=== PATIENT | female | born 1945 | race Caucasian/White ===

== ENCOUNTER 2017-04-11 08:07 | Outpatient (CLI) | payer MEDICARE, OTHER ==
--- NOTE | 2017-04-11 09:50 | MRI ---
MRI LUMBAR SPINE WITHOUT CONTRAST: Date: 04/11/17 HISTORY: Chronic back pain. COMPARISON: None. FINDINGS: The kidneys are slightly small. There is a large cyst inferior pole right kidney measuring up to 3.2 cm. The aortic contour is nonaneurysmal. The conus medullaris terminates near the inferior end plate of L1. Background marrow signal lumbar spine is normal. Levels are as follows: T12-L1: Normal disc space. No significant neural foraminal or spinal canal narrowing. L1-2: Mild degenerative disc space height loss. Circumferential disc bulge with a superimposed right parac entral posterior disc protrusion. This causes mild right-sided posterior spinal canal narrowing to a pproximately 7.0 mm, although the central canal is not significantly narrowed. Mild disc arthrosis. Subsequent mild right-sided neural foraminal narrowing. L2-3: Retained disc space height. No significant neural foraminal or spinal canal narrowing. L3-4: Very low grade circumferential disc bulge due to height loss. Moderate facet arthrosis. There is mod erate left and right neural foraminal narrowing. The spinal canal at this level measures over 1.0 cm . L4-5: Moderate facet arthrosis. Very low grade broad based posterior disc protrusion and bulge. Subsequent moderate bilateral neural foraminal narrowing. L5-S1: Moderate facet arthropathy. There is moderate right and mild left-sided neural foraminal narrowing. Small central posterior disc protrusion. There is a small perineural cyst of the left exiting S3 nerve root. IMPRESSION: Moderate spondylosis as described above. POS: [facility]
== END 2017-04-11 08:08 | disposition home or self-care (01) ==
LOC: SCSMRI 08:07
PROVIDERS: ATTEND Orthopaedic Surgery
DX: M47.26 Other spondylosis with radiculopathy, lumbar region (principal); M25.552 Pain in left hip
CPT/HCPCS: 72148

== ENCOUNTER 2018-04-10 08:45 | Inpatient (IN) | payer MEDICARE, OTHER ==
--- NOTE | 2018-04-17 12:01 | HP ---
DATE OF ADMISSION: 04/21/2018 HISTORY OF PRESENT ILLNESS: The patient is a 72-year-old female with a greater than 1-year history o f progressive problems with the left hip and groin without injury. She has tried weightbearing pain, reduced with activities, especially getting out of a car. She has had progressive symptoms despite rest, restriction of activities, anti-inflammatory medications, and a previous cortisone injection. Pain is now interfering with day-to-day activities. The patient also has a component of lumbar spondylosis and has obtained epidural steroid injection wi th partial relief, but she continues to have hip and groin pain. She also has a history of hypertens ion, hyperlipidemia, hypothyroidism, insomnia, psoriasis, and possible component of psoriatic arthrit is and possible rheumatoid arthritis. She has had carcinoma of the cervix requiring a hysterectomy. SOCIAL HISTORY: She works shrimp trawler as a realtor. CURRENT MEDICATIONS: Include fluocinonide topical solution for psoriasis, atorvastatin, trazodone, l orazepam for anxiety, atenolol, TriCor, [place] thyroid. ALLERGIES: She has no known allergies. FAMILY HISTORY: Otherwise unremarkable. SOCIAL HISTORY: Otherwise unremarkable. REVIEW OF SYSTEMS: Otherwise unremarkable. PHYSICAL EXAMINATION: GENERAL: Healthy female. HEENT: Unremarkable. NECK: Supple. CHEST: Clear. HEART: Regular rate and rhythm. ABDOMEN: Soft, nontender. PELVIC/RECTAL/BREASTS: Deferred. EXTREMITIES: Pertinent findings of the left hip. Leg lengths are equal. There is a slight left ant algic gait. There is tenderness over the anterior hip. There is decreased range of motion and groin pain with internal rotation. Neurovascular exam is intact. Straight leg raising is negative. LABORATORY AND X-RAY FINDINGS: X-rays of the left hip reveal moderate DJD with progression from prev ious x-rays. MRI scan of the left hip reveals more significant degenerative arthritis with cyst form ation in the acetabulum and rim osteophytes. IMPRESSION: 1. Degenerative arthritis, left hip. 2. History of thyroid replacement. 3. History of hypertension. 4. History of psoriasis. 5. Lumbar spondylosis. PLAN: Left total hip replacement. The nature of the surgery, length of recovery, and potential comp lications such as infection, loss of motion, incomplete relief, neurovascular injury, thromboembolic phenomenon, leg length discrepancy, possible transfusion, and need for revision have been discussed i n detail.
[2018-04-21] MEDS ORDERED: Sodium Chloride 0.9% 100 ML ONE (06:03)
[2018-04-21] MEDS ORDERED: CEFAZOLIN/Water 2 GM/20 ML SYRINGE ONE (06:03)
[2018-04-21] MEDS ORDERED: Vancomycin HCl 1.5 GM in Sodium Chloride 0.9% 250 ML 300 ML IVPB SCH ×2 (06:15→20:00)
[2018-04-21] MEDS ORDERED: Midazolam HCl 2 mg/2 ml Vial ONE (06:33)
[2018-04-21] MEDS ORDERED: Fentanyl 100 MCG/2 ML VIAL ONE ×2 (06:34→09:46)
[2018-04-21] MEDS ORDERED: Ondansetron HCl/PF 4 MG/2 ML Vial IVP PRN ×3 (07:46→11:23)
[2018-04-21] MEDS ORDERED: Promethazine HCl 25 MG/ML VIAL IM PRN ×2 (07:46→09:15)
[2018-04-21] MEDS ORDERED: Promethazine HCl 25 MG/ML VIAL SLOW IVP PRN ×2 (07:46→11:23)
[2018-04-21] MEDS ORDERED: Tranexamic Acid 1,000 MG in Sodium Chloride 0.9% 100 ML IVPB SCH ×2 (09:03→09:15)
[2018-04-21] MEDS ORDERED: fentaNYL Citrate/PF 1,250 MCG, Bupivacaine 25 ML in Sodium Chloride 0.9% 250 ML 200 ML EPIDURAL SCH (09:15)
[2018-04-21] MEDS ORDERED: diphenhydrAMINE 25 MG CAP PO PRN ×2 (09:15→11:23)
[2018-04-21] MEDS ORDERED: Bupivacaine 0.25% 10 ML VIAL EPIDURAL PRN (09:15)
[2018-04-21] MEDS ORDERED: HYDROcodone/Acetaminophen 5/325 mg Tablet PO PRN (09:15)
[2018-04-21] MEDS ORDERED: traMADol HCl 50 MG TAB PO PRN ×3 (09:15→11:23)
[2018-04-21] MEDS ORDERED: Zolpidem Tartrate 5 MG TAB PO PRN ×2 (09:15→11:23)
[2018-04-21] MEDS ORDERED: diphenhydrAMINE 50 MG/ML VIAL IVP PRN (09:15)
[2018-04-21] MEDS ORDERED: Hydrocerin (Eucerin) Cream 120 gm Jar TOP PRN (09:15)
[2018-04-21] MEDS ORDERED: Naloxone HCl 0.4 mg/ml Vial IV PRN (09:15)
[2018-04-21] MEDS ORDERED: Promethazine HCl 25 MG SUPP PR PRN (09:15)
[2018-04-21] MEDS ORDERED: Naloxone HCl 0.4 mg/ml Vial IVP PRN (09:15)
[2018-04-21] MEDS ORDERED: diphenhydrAMINE 50 MG/ML VIAL IM PRN (09:15)
--- NOTE | 2018-04-21 09:36 | OP ---
DATE OF PROCEDURE: 04/21/2018 SURGEON: uM Hirsch M.D. APPLICATION TECHNICAL DESIGNER: Ra Villalta PA-C. ANESTHESIA: General plus epidural. PREOPERATIVE DIAGNOSIS: Degenerative arthritis, left hip. POSTOPERATIVE DIAGNOSIS: Degenerative arthritis, left hip. PROCEDURES: Left total hip replacement with uncemented Norma Tritanium acetabular component 54 mm with X3 polyethylene insert and uncemented Accolade #3 femoral stem with 36 mm standard neck length m etal femoral head. NARRATIVE REPORT: After satisfactory anesthesia was induced in the supine position, the patient was placed in the lateral decubitus position and this position was held with a hip position device. Sequ ential compression device was used on the nonoperative leg throughout the procedure. The patient was prepped and draped in the routine sterile fashion. The hip was approached through a lateral curvili near incision centered over the greater trochanter and carried down to the subcutaneous tissues and b leeding points were controlled with cautery. IT band and gluteal fascia were split in line with the skin incision. Direct lateral approach to the hip joint was accomplished by dividing the anterior th ird of the gluteus medius and minimus tendons with Bovie cautery and reflecting this as a single flap anteriorly and medially along with the vastus lateralis. Anterior capsulectomy was performed. Hip dislocated anteriorly. There was marked degenerative arthritis of the hip with areas of exposed bone . The femoral neck was osteotomized with an oscillating saw using a trial prosthesis as a guide. Ac etabulum was exposed and cleaned of all soft tissue debris and then reamed in sequence with power stephanie mers down to bleeding subchondral bone to a total of 53 mm. It was felt that a 54 mm Tritanium outer shell could be placed in a press fit fashion. The permanent outer shell was hammered in position. There was good fit and stability of the component and the permanent X3 polyethylene liner was snapped into position and the proximal femur exposed. It was opened with a box osteotome and rasped in sequ ence to accept a #3 Accolade femoral rasp. Trial reduction with a 132-degree neck angle trunnion and the standard neck length of 36 mm head gave appropriate size, fit, stability and maintenance of leg length. Hip was dislocated and the trial components were removed. The permanent #3 Accolade femoral stem was then hammered in position. There was again good fit and stability of the component. The p ermanent 36 mm standard neck length metal head was then placed on the trunnion. The hip reduced and again found to be stable. The hip was copiously irrigated with pulsatile lavage. The abductors were repaired with interrupted #2 Vicryl. IT band and gluteal fascia were closed with interrupted #2 Cal ryl and a running #2 Quill. Subcutaneous tissues closed with running 0 Quill suture and the skin shelton sed with running subcuticular 3-0 Monoderm and SurgiSeal skin adhesive. Sterile dressing was applied . The patient was turned to the supine position and a pillow placed between her legs. Sequential co mpression device was applied to her operated leg and she was awakened and taken to recovery room in s table condition. There were no apparent intraoperative complications. ESTIMATED BLOOD LOSS: 250 mL.
--- NOTE | 2018-04-21 10:10 | RAD ---
TWO VIEWS LEFT HIP: History: Status post-surgery. FINDINGS: AP and lateral views demonstrate a left hip arthroplasty. Femoral and acetabular components are in go od position. No evidence of fractures or lucency. IMPRESSION: Status post left hip arthroplasty. POS: [facility]
[2018-04-21] MEDS ORDERED: Fentanyl 100 MCG/2 ML VIAL SLOW IVP PRN ×2 (11:23)
[2018-04-21] MEDS ORDERED: HYDROcodone/Acetaminophen 10/325 mg Tablet PO PRN ×2 (11:23)
[2018-04-21] MEDS ORDERED: Acetaminophen 325 MG TAB PO PRN (11:23)
[2018-04-21] MEDS: Sodium Chloride 0.9% 1,000 ML IV SCH ×2 (12:50→15:35)
[2018-04-21] MEDS: Ketorolac Tromethamine 30 MG/ML VIAL IVP SCH ×3 (12:50→23:15)
[2018-04-21] MEDS: CEFAZOLIN/Water 2 GM/20 ML SYRINGE SLOW IVP SCH ×2 (13:25→21:02)
--- NOTE | 2018-04-21 13:59 | PDOC.PN ---
- Subjective Encounter Start Date: 04/21/18 Encounter Start Time: 13:57 -: old records requested/rev admitted for left hip replacement no complication post op pt has epidural in place Her BP is low but pt is asymptomatic Patient seen and examined. - Objective MAR Reviewed: Yes Vital Signs & Weight: Vital Signs (12 hours) Temp Pulse Resp BP Pulse Ox 04/21/18 13:31 98.4 F 60 16 119/80 96 04/21/18 11:00 97.3 F L 52 L 18 115/66 99 Weight Weight 7.584 oz Additional Labs: old medical record reviewed Radiology Reviewed by me: Yes (hip xray reviewed) Phys Exam - Physical Examination Constitutional: NAD HEENT: PERRLA, moist MMs, sclera anicteric Neck: no JVD, supple Respiratory: no wheezing, no rales, no rhonchi Cardiovascular: RRR, no significant murmur, no rub Gastrointestinal: soft, non-tender, no distention, positive bowel sounds left hip surgical site with dressing, sevilla+, epidural in place Musculoskeletal: no edema, pulses present Neurological: non-focal, normal sensation, moves all 4 limbs Lymphatic: no nodes Psychiatric: normal affect, A&O x 3 Skin: no rash, normal turgor Dx/Plan (1) Status post total hip replacement, left Code(s): Z96.642 - PRESENCE OF LEFT ARTIFICIAL HIP JOINT Status: Acute (2) Hypertension Code(s): I10 - ESSENTIAL (PRIMARY) HYPERTENSION Status: Chronic (3) Dyslipidemia Code(s): E78.5 - HYPERLIPIDEMIA, UNSPECIFIED Status: Chronic (4) Hypothyroidism Code(s): E03.9 - HYPOTHYROIDISM, UNSPECIFIED Status: Chronic (5) Lumbar spondylolysis Code(s): M43.06 - SPONDYLOLYSIS, LUMBAR REGION Status: Chronic (6) Psoriasis Code(s): L40.9 - PSORIASIS, UNSPECIFIED Status: Chronic - Plan cont current plan of care, PT/OT * continue aspirin for DVT prophylaxis * continue pepcid for GI prophylaxis * home medication reconciled * epidural as per anesthesia * continue PT/OT as per JU protocol treatment * hold BP meds for SBP <120 * medication reviewed as below * symptomatic treatment. Review of Systems - Review of Systems Eyes: negative: Pain, Vision Change, Conjunctivae Inflammation, Eyelid Inflammation, Redness, Other ENT: negative: Ear Pain, Ear Discharge, Nose Pain, Nose Discharge, Nose Congestion, Mouth Pain, Mouth Swelling, Throat Pain, Throat Swelling, Other Respiratory: negative: Cough, Dry, Shortness of Breath, Hemoptysis, SOB with Excertion, Pleuritic Pain, Sputum, Wheezing Cardiovascular: negative: chest pain, palpitations, orthopnea, paroxysmal nocturnal dyspnea, edema, light headedness, other Gastrointestinal: negative: Nausea, Vomiting, Abdominal Pain, Diarrhea, Constipation, Melena, Hematochezia, Other Genitourinary: negative: Dysuria, Frequency, Incontinence, Hematuria, Retention , Other Musculoskeletal: negative: Neck Pain, Shoulder Pain, Arm Pain, Back Pain, Hand Pain, Leg Pain, Foot Pain, Other Skin: negative: Rash, Lesions, Tramaine, Bruising, Other - Medications/Allergies Allergies/Adverse Reactions: Allergies Allergy/AdvReac Type Severity Reaction Status Date / Time No Known Allergies Allergy Verified 04/16/18 09:54 Medications: Current Medications Acetaminophen (Tylenol) 650 mg PO Q4H PRN PRN Reason: FLORES/ T > 101F; Mild Pain (1-3) Hydrocodone Bitart/Acetaminophen ([place] 5/325) 1 tab PO Q4H PRN PRN Reason: Mild Pain 0-3 Hydrocodone Bitart/Acetaminophen ([place] 5/325) 2 tab PO Q4H PRN PRN Reason: For Moderate Pain 4-6 Hydrocodone Bitart/Acetaminophen ([place] 10/325) 1 tab PO Q4H PRN PRN Reason: Moderate Pain (4-6) Hydrocodone Bitart/Acetaminophen ([place] 10/325) 2 tab PO Q4H PRN PRN Reason: Severe Pain (7-10) Aspirin (Ecotrin) 81 mg PO BID [facility] Atenolol (Tenormin) 50 mg PO HS [facility] Atorvastatin Calcium (Lipitor) 10 mg PO HS [facility] Bupivacaine HCl (Marcaine) 5 ml EPIDURAL ONE PRN PRN Reason: UNCONTROLLED PAIN Stop: 04/24/18 09:16 Cefazolin Sodium (Ancef) 2 gm SLOW IVP Q8HR [facility] Stop: 04/21/18 22:01 Last Admin: 04/21/18 13:25 Dose: 2 gm Cyanocobalamin (Vitamin B-12) 2,000 mcg PO DAILY [facility] Diphenhydramine HCl (Benadryl) 25 mg PO Q3H PRN PRN Reason: Itching Diphenhydramine HCl (Benadryl) 25 mg IM Q3H PRN PRN Reason: Itching Diphenhydramine HCl (Benadryl) 25 mg IVP Q3H PRN PRN Reason: Itching Diphenhydramine HCl (Benadryl) 25 mg PO Q6H PRN PRN Reason: Itching Emollient Cream (Hydrocerin Cream) 0 gm TOP PRN PRN PRN Reason: Itching Fenofibrate (Tricor) 145 mg PO HS [facility] Fentanyl (Sublimaze) 50 mcg SLOW IVP Q30MIN PRN PRN Reason: Moderate Pain (4-6) Fentanyl (Sublimaze) 100 mcg SLOW IVP Q1H PRN PRN Reason: Severe Pain (7-10) Ferrous Gluconate (Fergon) 324 mg PO BID [facility] Fentanyl Citrate 1,250 mcg/Bupivacaine HCl 25 ml/ Sodium Chloride 250 mls @ 6 mls/hr EPIDURAL INF [facility] Sodium Chloride (Normal Saline 0.9%) 1,000 mls @ 100 mls/hr IV .Q10H [facility] Last Admin: 04/21/18 12:50 Dose: Not Given Vancomycin HCl 1.5 gm/ Sodium (Chloride) 300 mls @ 200 mls/hr IVPB 2000 [facility] Stop: 04/21/18 21:29 Iron/Minerals/Multivitamins (Theragran M) 1 tab PO DAILY [facility] Ketorolac Tromethamine (Toradol) 15 mg IVP Q6HR [facility] Stop: 04/23/18 06:01 Last Admin: 04/21/18 12:50 Dose: Not Given Ketorolac Tromethamine (Toradol) 15 mg IVP Q8HR [facility] Stop: 04/23/18 14:01 Last Admin: 04/21/18 12:53 Dose: Not Given Miscellaneous Information (Communication Order-Pharmacy) 1 each FS ASDIR [facility] Naloxone HCl (Narcan) 0.2 mg IV Q5MIN PRN PRN Reason: RR <=8 OR OBTUNDED/UNAROUSABLE Naloxone HCl (Narcan) 0.1 mg IVP Q15MIN PRN PRN Reason: URINARY RETENTION Ondansetron HCl (Zofran) 4 mg IVP Q6H PRN PRN Reason: Nausea/Vomiting Ondansetron HCl (Zofran) 4 mg IVP Q6H PRN PRN Reason: Nausea/Vomiting Promethazine HCl (Phenergan) 12.5 mg IM Q4H PRN PRN Reason: Nausea Promethazine HCl (Phenergan Suppository) 25 mg [place] Q4H PRN PRN Reason: Nausea/Vomiting Promethazine HCl (Phenergan) 12.5 mg SLOW IVP Q4H PRN PRN Reason: Nausea/Vomiting Senna/Docusate Sodium (Senokot S) 2 tab PO BID [facility] Sodium Chloride (Flush - Normal Saline) 10 ml IVF PRN PRN PRN Reason: Saline Flush Thyroid ([place] Thyroid) 90 mg PO DAILY [facility] Tramadol HCl (Ultram) 50 mg PO Q6H PRN PRN Reason: Mild Pain 1-3 Tramadol HCl (Ultram) 100 mg PO Q6H PRN PRN Reason: Moderate Pain 4-6 Tramadol HCl (Ultram) 100 mg PO Q6H PRN PRN Reason: Mild Pain (1-3) Zolpidem Tartrate (Ambien) 5 mg PO HSPRN PRN PRN Reason: Insomnia Zolpidem Tartrate (Ambien) 5 mg PO HSPRN PRN PRN Reason: Insomnia
[2018-04-21] MEDS ORDERED: Ketorolac Tromethamine 30 MG/ML VIAL IVP SCH (14:00)
[2018-04-21] MEDS ORDERED: hydrALAZINE 20 MG/ML VIAL SLOW IVP PRN (14:03)
[2018-04-21] MEDS ORDERED: Acetaminophen 500 MG TAB PO PRN (14:03)
[2018-04-21] MEDS ORDERED: Diabetic Tussin 200 MG/10 ML UDCUP PO PRN (14:03)
[2018-04-21] MEDS ORDERED: Eucerin (Mineral Oil/Petrolatum,White) 30 gm Jar TOP PRN (14:03)
[2018-04-21] MEDS ORDERED: Artificial Tears 18 DROP/0.9 ML EA EYE PRN (14:03)
[2018-04-21] MEDS ORDERED: Loperamide HCl 2 MG CAP PO PRN (14:03)
[2018-04-21] MEDS: HYDROcodone/Acetaminophen 5/325 mg Tablet PO PRN (15:37)
[2018-04-21] MEDS ORDERED: PROPOFOL 200 MG/20 ML VIAL ONE (17:01)
[2018-04-21] MEDS ORDERED: Ondansetron HCl/PF 4 MG/2 ML Vial ONE (17:01)
[2018-04-21] MEDS ORDERED: PHENYLEPHRINE-NS 100 MCG/ML 10 ML SYRINGE ONE (17:01)
[2018-04-21] MEDS ORDERED: Glycopyrrolate 0.2 MG/ML 5 ML SYRINGE ONE (17:01)
[2018-04-21] MEDS ORDERED: Lidocaine 1% PF 5 ML VIAL ONE (17:01)
[2018-04-21] MEDS: Atenolol 50 MG TAB PO SCH (20:34)
[2018-04-21] MEDS: Atorvastatin Calcium 10 MG TAB PO SCH (20:35)
[2018-04-21] MEDS: Fenofibrate Nanocrystallized 145 MG TAB PO SCH (20:35)
[2018-04-21] MEDS: Aspirin 81 mg Enteric Coated Tablet PO SCH (20:35)
[2018-04-21] MEDS: Famotidine 20 MG TAB PO SCH (20:35)
[2018-04-22] MEDS: Ketorolac Tromethamine 30 MG/ML VIAL IVP SCH ×4 (05:12→23:07)
[2018-04-22] MEDS: Sodium Chloride 0.9% 1,000 ML IV SCH ×2 (05:52→17:50)
[2018-04-22] MEDS: Multivitamin W/ Minerals 1 TAB PO SCH (08:43)
[2018-04-22] MEDS: Senokot S 8.6-50 MG TAB PO SCH ×2 (08:43→20:12)
[2018-04-22] MEDS: Cyanocobalamin (Vitamin B-12) 1,000 MCG TAB PO SCH (08:43)
[2018-04-22] MEDS: Ferrous Gluconate 324 MG TAB PO SCH ×2 (08:43→20:12)
[2018-04-22] MEDS: Aspirin 81 mg Enteric Coated Tablet PO SCH ×2 (08:44→20:12)
[2018-04-22] MEDS: Famotidine 20 MG TAB PO SCH ×2 (08:44→20:12)
[2018-04-22] MEDS ORDERED: Sodium Chloride 0.9% 500 ML IV SCH (09:00)
[2018-04-22 09:18] LABS: Hemoglobin 10.9 g/dL (12.0-16.0); Mean Corpuscular HGB CONC 33.6 g/dL (32.0-36.0); Mean Corpuscular Hemoglobin 32.6 pg (27.0-31.0); Mean Platelet Volume 6.3 fL (7.4-10.4); Platelet Count 158 thou/uL (130-400); RBC Distribution Width 12.5 % (11.5-14.5); Red Blood Cell (RBC) Count 3.33 mill/uL (4.20-5.40); White Blood Cell (WBC) Count 5.5 thou/uL (4.8-10.8)
--- NOTE | 2018-04-22 09:33 | EKG ---
Test Reason : PREOP Blood Pressure : / mmHG Vent. Rate : 060 BPM Atrial Rate : 060 BPM P-R Int : 216 ms QRS Dur : 082 ms QT Int : 428 ms P-R-T Axes : 077 010 007 degrees QTc Int : 428 ms Sinus rhythm with 1st degree A-V block Otherwise normal ECG No previous ECGs available Confirmed by LAINA RODRIGUEZ ([id number]) on 04/22/2018 9:33:30 AM Referred By: [email or web address] Confirmed By:LAINA RODRIGUEZ
--- NOTE | 2018-04-22 10:50 | PDOC.PN ---
- Subjective Encounter Start Date: 04/22/18 Encounter Start Time: 08:50 Patient seen and examined. No overnight events pt has dizziness, her BP is low - Objective Resuscitation Status: Resuscitation Status FULL:Full Resuscitation MAR Reviewed: Yes Vital Signs & Weight: Vital Signs (12 hours) Temp Pulse Resp BP Pulse Ox 04/22/18 07:51 98.0 F 67 16 99/61 96 04/22/18 04:00 98.4 F 64 16 94/57 L 95 04/21/18 23:48 98.3 F 64 14 97/65 96 Weight Weight 7.584 oz I&O: 04/21/18 04/22/18 04/23/18 06:59 06:59 06:59 Intake Total 3915.0 Output Total 1700 Balance 2215.0 Result Diagrams: 04/22/18 09:10 Phys Exam - Physical Examination Constitutional: NAD HEENT: PERRLA, moist MMs, sclera anicteric Neck: no JVD, supple Respiratory: no wheezing, no rales, no rhonchi Cardiovascular: RRR, no significant murmur, no rub Gastrointestinal: soft, non-tender, no distention, positive bowel sounds Musculoskeletal: no edema, pulses present left hip surgical site with dressing, epidural in place Neurological: non-focal, normal sensation Psychiatric: normal affect, A&O x 3 Skin: no rash, normal turgor Dx/Plan (1) Status post total hip replacement, left Code(s): Z96.642 - PRESENCE OF LEFT ARTIFICIAL HIP JOINT Status: Acute (2) Hypertension Code(s): I10 - ESSENTIAL (PRIMARY) HYPERTENSION Status: Chronic (3) Dyslipidemia Code(s): E78.5 - HYPERLIPIDEMIA, UNSPECIFIED Status: Chronic (4) Hypothyroidism Code(s): E03.9 - HYPOTHYROIDISM, UNSPECIFIED Status: Chronic (5) Lumbar spondylolysis Code(s): M43.06 - SPONDYLOLYSIS, LUMBAR REGION Status: Chronic (6) Psoriasis Code(s): L40.9 - PSORIASIS, UNSPECIFIED Status: Chronic - Plan cont current plan of care, PT/OT * will give NS 500 ml for low BP and dizziness * medication reviewed as below * symptomatic treatment * epidural as per anesthesia * consider sevilla removal * continue PT/OT as per protocol * pain controlled with pain meds * aspirin for DVTprophylaxis. Review of Systems - Review of Systems ENT: negative: Ear Pain, Ear Discharge, Nose Pain, Nose Discharge, Nose Congestion, Mouth Pain, Mouth Swelling, Throat Pain, Throat Swelling, Other Respiratory: negative: Cough, Dry, Shortness of Breath, Hemoptysis, SOB with Excertion, Pleuritic Pain, Sputum, Wheezing Cardiovascular: light headedness. negative: chest pain, palpitations, orthopnea , paroxysmal nocturnal dyspnea, edema, other Gastrointestinal: negative: Nausea, Vomiting, Abdominal Pain, Diarrhea, Constipation, Melena, Hematochezia, Other Genitourinary: negative: Dysuria, Frequency, Incontinence, Hematuria, Retention , Other Musculoskeletal: negative: Neck Pain, Shoulder Pain, Arm Pain, Back Pain, Hand Pain, Leg Pain, Foot Pain, Other Skin: negative: Rash, Lesions, Tramaine, Bruising, Other - Medications/Allergies Allergies/Adverse Reactions: Allergies Allergy/AdvReac Type Severity Reaction Status Date / Time No Known Allergies Allergy Verified 04/16/18 09:54 Medications: Current Medications Acetaminophen (Tylenol) 650 mg PO Q4H PRN PRN Reason: FLORES/ T > 101F; Mild Pain (1-3) Acetaminophen (Tylenol) 1,000 mg PO Q4H PRN PRN Reason: Fever > 101 Hydrocodone Bitart/Acetaminophen ([place] 5/325) 2 tab PO Q4H PRN PRN Reason: For Moderate Pain 4-6 Last Admin: 04/21/18 15:37 Dose: 2 tab Hydrocodone Bitart/Acetaminophen ([place] 5/325) 1 tab PO Q4H PRN PRN Reason: Mild Pain 0-3 Artificial Tears (Tears Naturale) 2 drop EA EYE PRN PRN PRN Reason: Dry Eyes Aspirin (Ecotrin) 81 mg PO BID [facility] Last Admin: 04/22/18 08:44 Dose: 81 mg Atenolol (Tenormin) 50 mg PO HS [facility] Last Admin: 04/21/18 20:34 Dose: 50 mg Atorvastatin Calcium (Lipitor) 10 mg PO HS [facility] Last Admin: 04/21/18 20:35 Dose: 10 mg Bupivacaine HCl (Marcaine) 5 ml EPIDURAL ONE PRN PRN Reason: UNCONTROLLED PAIN Stop: 04/24/18 09:16 Cyanocobalamin (Vitamin B-12) 2,000 mcg PO DAILY [facility] Last Admin: 04/22/18 08:43 Dose: 2,000 mcg Diphenhydramine HCl (Benadryl) 25 mg PO Q3H PRN PRN Reason: Itching Diphenhydramine HCl (Benadryl) 25 mg IM Q3H PRN PRN Reason: Itching Diphenhydramine HCl (Benadryl) 25 mg IVP Q3H PRN PRN Reason: Itching Emollient Cream (Hydrocerin Cream) 0 gm TOP PRN PRN PRN Reason: Itching Famotidine (Pepcid) 20 mg PO BID [facility] Last Admin: 04/22/18 08:44 Dose: 20 mg Fenofibrate (Tricor) 145 mg PO HS [facility] Last Admin: 04/21/18 20:35 Dose: 145 mg Ferrous Gluconate (Fergon) 324 mg PO BID [facility] Last Admin: 04/22/18 08:43 Dose: 324 mg Guaifenesin (Robitussin Sf) 200 mg PO Q4H PRN PRN Reason: Cough Hydralazine HCl (Apresoline) 10 mg SLOW IVP Q4H PRN PRN Reason: SBP > 180 and HR < 70 Fentanyl Citrate 1,250 mcg/Bupivacaine HCl 25 ml/ Sodium Chloride 250 mls @ 6 mls/hr EPIDURAL INF [facility] Sodium Chloride (Normal Saline 0.9%) 1,000 mls @ 100 mls/hr IV .Q10H [facility] Last Admin: 04/22/18 05:52 Dose: Not Given Sodium Chloride (Normal Saline 0.9%) 500 mls @ 150 mls/hr IV .Q3H20M [facility] Stop: 04/22/18 12:19 Last Admin: 04/22/18 10:21 Dose: 500 mls Iron/Minerals/Multivitamins (Theragran M) 1 tab PO DAILY [facility] Last Admin: 04/22/18 08:43 Dose: 1 tab Ketorolac Tromethamine (Toradol) 15 mg IVP Q6HR [facility] Stop: 04/23/18 06:01 Last Admin: 04/22/18 05:12 Dose: 15 mg Loperamide HCl (Imodium) 2 mg PO PRN PRN PRN Reason: Diarrhea/Loose Stools Mineral Oil/White Petrolatum (Eucerin Cream) 0 gm TOP BIDPRN PRN PRN Reason: Dry Skin Miscellaneous Information (Communication Order-Pharmacy) 1 each FS ASDIR [facility] Naloxone HCl (Narcan) 0.2 mg IV Q5MIN PRN PRN Reason: RR <=8 OR OBTUNDED/UNAROUSABLE Naloxone HCl (Narcan) 0.1 mg IVP Q15MIN PRN PRN Reason: URINARY RETENTION Ondansetron HCl (Zofran) 4 mg IVP Q6H PRN PRN Reason: Nausea/Vomiting Last Admin: 04/22/18 05:45 Dose: 4 mg Promethazine HCl (Phenergan) 12.5 mg IM Q4H PRN PRN Reason: Nausea Promethazine HCl (Phenergan Suppository) 25 mg [place] Q4H PRN PRN Reason: Nausea/Vomiting Senna/Docusate Sodium (Senokot S) 2 tab PO BID [facility] Last Admin: 04/22/18 08:43 Dose: 2 tab Sodium Chloride (Flush - Normal Saline) 10 ml IVF PRN PRN PRN Reason: Saline Flush Thyroid ([place] Thyroid) 90 mg PO DAILY [facility] Last Admin: 04/22/18 08:42 Dose: 90 mg Tramadol HCl (Ultram) 50 mg PO Q6H PRN PRN Reason: Mild Pain 1-3 Tramadol HCl (Ultram) 100 mg PO Q6H PRN PRN Reason: Moderate Pain 4-6 Zolpidem Tartrate (Ambien) 5 mg PO HSPRN PRN PRN Reason: Insomnia
[2018-04-22 13:07] VITALS: BMI 34.3
[2018-04-22] MEDS: Atorvastatin Calcium 10 MG TAB PO SCH (20:12)
[2018-04-22] MEDS: Fenofibrate Nanocrystallized 145 MG TAB PO SCH (20:13)
[2018-04-22] MEDS: Atenolol 50 MG TAB PO SCH (20:15)
[2018-04-22] MEDS: HYDROcodone/Acetaminophen 5/325 mg Tablet PO PRN (20:22)
[2018-04-23] MEDS: Sodium Chloride 0.9% 1,000 ML IV SCH ×2 (03:12→13:45)
[2018-04-23 04:58] LABS: Hemoglobin 9.6 g/dL (12.0-16.0); Mean Corpuscular HGB CONC 33.7 g/dL (32.0-36.0); Mean Corpuscular Hemoglobin 32.7 pg (27.0-31.0); Mean Platelet Volume 6.3 fL (7.4-10.4); Platelet Count 136 thou/uL (130-400); RBC Distribution Width 12.4 % (11.5-14.5); Red Blood Cell (RBC) Count 2.94 mill/uL (4.20-5.40); White Blood Cell (WBC) Count 5.7 thou/uL (4.8-10.8)
[2018-04-23] MEDS: Ketorolac Tromethamine 30 MG/ML VIAL IVP SCH (05:43)
[2018-04-23] MEDS: Famotidine 20 MG TAB PO SCH (08:29)
[2018-04-23] MEDS: Senokot S 8.6-50 MG TAB PO SCH (08:29)
[2018-04-23] MEDS: Cyanocobalamin (Vitamin B-12) 1,000 MCG TAB PO SCH (08:29)
[2018-04-23] MEDS: Multivitamin W/ Minerals 1 TAB PO SCH (08:29)
[2018-04-23] MEDS: Ferrous Gluconate 324 MG TAB PO SCH (08:29)
[2018-04-23] MEDS: HYDROcodone/Acetaminophen 5/325 mg Tablet PO PRN ×2 (08:30→14:20)
[2018-04-23] MEDS: Aspirin 81 mg Enteric Coated Tablet PO SCH (08:30)
--- NOTE | 2018-04-23 11:01 | PRG ---
PRIMARY CARE PHYSICIAN: Sukhdev Apodaca MD DATE OF ADMISSION: 04/21/2018 DATE OF DISCHARGE: 04/23/2018 DISCHARGE DISPOSITION: Home. PRIMARY DISCHARGE DIAGNOSIS: Status post left total hip replacement. SECONDARY DISCHARGE DIAGNOSES: Hypertension, dyslipidemia, hypothyroidism, lumbar spondylosis, histo ry of psoriasis, obesity with BMI 34. PRIMARY PROCEDURES AND OPERATIONS: Left total hip replacement by Dr. Hirsch. RADIOLOGICAL INVESTIGATION: Hip x-ray. SIGNIFICANT LABORATORY DATA: WBC 5.7, hemoglobin 9.6, platelet 136. DISCHARGE MEDICATIONS: Atenolol 50 mg p.o. at bedtime, Lipitor 10 mg p.o. at bedtime, vitamin B12 of 2000 mcg p.o. daily, fenofibrate 145 mg p.o. at bedtime, [place] thyroid 90 mg p.o. daily, Ambien 5 m g p.o. at bedtime p.r.n., pain medication will defer to primary team. HOME MEDICATION: Aspirin 81 mg p.o. b.i.d. for DVT prophylaxis. CONTRAINDICATIONS: None. CODE STATUS: FULL CODE. INPATIENT CONSULTANTS: Dr. Hirsch was primary while in hospital. Sound Team was consulted for medica l comanagement. TEST RESULTS PENDING ON DISCHARGE: None. ALLERGIES: No known drug allergy. DISCHARGE PLAN: Post hospital, the patient will follow up with Dr. Hirsch on 05/14/2018 at 2:00 p.m. The patient will make appointment with primary care physician. HOSPITAL COURSE: A 72-year-old female with osteoarthritis who presented to hospital as an elective a dmission for left total hip replacement for her osteoarthritis, which was replaced on 04/21/2018 by Kenya Hirsch without any complication. Postoperatively, the patient was transferred to [facility] where she had epidural in place. She was relatively hypotensive and that is why she was given IV flu id. Her hypotension resolved. She was treated with the [facility] protocol with the PT, OT an d she did excellent. While in hospital, we continued all her home medication. Upon discharge, we co ntinued similar home medication. Pain medication will be given by primary team. The patient is give n necessary education about orthostatic hypotension and holding blood pressure medication if blood pr essure is less than 120 systolic. I have seen and examined at this patient at bedside. Review of sy stems reviewed with her and negative. Today, her epidural and [place] catheter will be removed. PHYSICAL EXAMINATION: VITAL SIGNS: Currently, temperature 98.1, pulse 70, respiratory rate 16, saturation 96% on room air, blood pressure 119/77, weight 200 pounds. GENERAL: The patient is currently alert, awake, no obvious acute distress. HEAD: Normocephalic, atraumatic. LUNGS: Clear to auscultation without any rhonchi or rales. CARDIAC: S1, S2 regular without any murmur. ABDOMEN: Soft and benign without any tenderness. EXTREMITIES: No edema. Surgical site with a dressing. NEUROLOGIC: Nonfocal examination. We will sign off today.
[2018-04-23 11:42] VITALS: BP 122/66; TEMP 97.8
--- NOTE | 2018-04-23 11:42 | PDOC.PN ---
- Subjective Encounter Start Date: 04/23/18 Encounter Start Time: 08:45 Patient seen and examined. No new complaints. No overnight events - Objective Resuscitation Status: Resuscitation Status FULL:Full Resuscitation MAR Reviewed: Yes Vital Signs & Weight: Vital Signs (12 hours) Temp Pulse Resp BP BP Pulse Ox 04/23/18 07:20 98.1 F 70 16 119/77 96 04/23/18 04:32 98.1 F 66 16 108/72 95 04/23/18 00:00 98.3 F 68 16 95/62 93 L Weight Admit Weight 200 lb Weight 200 lb I&O: 04/22/18 04/23/18 04/24/18 06:59 06:59 06:59 Intake Total 3915.0 2393.0 Output Total 1700 2200 Balance 2215.0 193.0 Result Diagrams: 04/23/18 04:27 Phys Exam - Physical Examination Constitutional: NAD HEENT: PERRLA, moist MMs, sclera anicteric Neck: no JVD, supple Respiratory: no wheezing, no rales, no rhonchi Cardiovascular: RRR, no significant murmur, no rub Gastrointestinal: soft, non-tender, no distention, positive bowel sounds Musculoskeletal: no edema, pulses present Neurological: non-focal, normal sensation, moves all 4 limbs Psychiatric: normal affect, A&O x 3 Skin: no rash, normal turgor Dx/Plan (1) Status post total hip replacement, left Code(s): Z96.642 - PRESENCE OF LEFT ARTIFICIAL HIP JOINT Status: Acute (2) Hypertension Code(s): I10 - ESSENTIAL (PRIMARY) HYPERTENSION Status: Chronic (3) Dyslipidemia Code(s): E78.5 - HYPERLIPIDEMIA, UNSPECIFIED Status: Chronic (4) Hypothyroidism Code(s): E03.9 - HYPOTHYROIDISM, UNSPECIFIED Status: Chronic (5) Lumbar spondylolysis Code(s): M43.06 - SPONDYLOLYSIS, LUMBAR REGION Status: Chronic (6) Psoriasis Code(s): L40.9 - PSORIASIS, UNSPECIFIED Status: Chronic - Plan cont current plan of care * medication reviewed as below * symptomatic treatment * see my dictation report today. Review of Systems - Review of Systems Eyes: negative: Pain, Vision Change, Conjunctivae Inflammation, Eyelid Inflammation, Redness, Other ENT: negative: Ear Pain, Ear Discharge, Nose Pain, Nose Discharge, Nose Congestion, Mouth Pain, Mouth Swelling, Throat Pain, Throat Swelling, Other Respiratory: negative: Cough, Dry, Shortness of Breath, Hemoptysis, SOB with Excertion, Pleuritic Pain, Sputum, Wheezing Cardiovascular: negative: chest pain, palpitations, orthopnea, paroxysmal nocturnal dyspnea, edema, light headedness, other Gastrointestinal: negative: Nausea, Vomiting, Abdominal Pain, Diarrhea, Constipation, Melena, Hematochezia, Other Genitourinary: negative: Dysuria, Frequency, Incontinence, Hematuria, Retention , Other Musculoskeletal: negative: Neck Pain, Shoulder Pain, Arm Pain, Back Pain, Hand Pain, Leg Pain, Foot Pain, Other Skin: negative: Rash, Lesions, Tramaine, Bruising, Other - Medications/Allergies Allergies/Adverse Reactions: Allergies Allergy/AdvReac Type Severity Reaction Status Date / Time No Known Allergies Allergy Verified 04/16/18 09:54 Medications: Current Medications Acetaminophen (Tylenol) 650 mg PO Q4H PRN PRN Reason: [place]ORES/ T > 101F; Mild Pain (1-3) Acetaminophen (Tylenol) 1,000 mg PO Q4H PRN PRN Reason: Fever > 101 Hydrocodone Bitart/Acetaminophen ([place] 5/325) 2 tab PO Q4H PRN PRN Reason: For Moderate Pain 4-6 Last Admin: 04/22/18 20:22 Dose: 2 tab Hydrocodone Bitart/Acetaminophen ([place] 5/325) 1 tab PO Q4H PRN PRN Reason: Mild Pain 0-3 Last Admin: 04/23/18 08:30 Dose: 1 tab Artificial Tears (Tears Naturale) 2 drop EA EYE PRN PRN PRN Reason: Dry Eyes Aspirin (Ecotrin) 81 mg PO BID [facility] Last Admin: 04/23/18 08:30 Dose: 81 mg Atenolol (Tenormin) 50 mg PO HS [facility] Last Admin: 04/22/18 20:15 Dose: Not Given Atorvastatin Calcium (Lipitor) 10 mg PO HS [facility] Last Admin: 04/22/18 20:12 Dose: 10 mg Bupivacaine HCl (Marcaine) 5 ml EPIDURAL ONE PRN PRN Reason: UNCONTROLLED PAIN Stop: 04/24/18 09:16 Cyanocobalamin (Vitamin B-12) 2,000 mcg PO DAILY [facility] Last Admin: 10/17/18 08:29 Dose: 2,000 mcg Diphenhydramine HCl (Benadryl) 25 mg PO Q3H PRN PRN Reason: Itching Diphenhydramine HCl (Benadryl) 25 mg IM Q3H PRN PRN Reason: Itching Diphenhydramine HCl (Benadryl) 25 mg IVP Q3H PRN PRN Reason: Itching Emollient Cream (Hydrocerin Cream) 0 gm TOP PRN PRN PRN Reason: Itching Famotidine (Pepcid) 20 mg PO BID [facility] Last Admin: 04/23/18 08:29 Dose: 20 mg Fenofibrate (Tricor) 145 mg PO HS [facility] Last Admin: 04/22/18 20:13 Dose: 145 mg Ferrous Gluconate (Fergon) 324 mg PO BID [facility] Last Admin: 04/23/18 08:29 Dose: 324 mg Guaifenesin (Robitussin Sf) 200 mg PO Q4H PRN PRN Reason: Cough Hydralazine HCl (Apresoline) 10 mg SLOW IVP Q4H PRN PRN Reason: SBP > 180 and HR < 70 Fentanyl Citrate 1,250 mcg/Bupivacaine HCl 25 ml/ Sodium Chloride 250 mls @ 6 mls/hr EPIDURAL INF [facility] Last Admin: 04/23/18 05:25 Dose: 250 mls Sodium Chloride (Normal Saline 0.9%) 1,000 mls @ 100 mls/hr IV .Q10H [facility] Last Admin: 04/23/18 03:12 Dose: Not Given Iron/Minerals/Multivitamins (Theragran M) 1 tab PO DAILY [facility] Last Admin: 04/23/18 08:29 Dose: 1 tab Loperamide HCl (Imodium) 2 mg PO PRN PRN PRN Reason: Diarrhea/Loose Stools Mineral Oil/White Petrolatum (Eucerin Cream) 0 gm TOP BIDPRN PRN PRN Reason: Dry Skin Miscellaneous Information (Communication Order-Pharmacy) 1 each FS ASDIR [facility] Naloxone HCl (Narcan) 0.2 mg IV Q5MIN PRN PRN Reason: RR <=8 OR OBTUNDED/UNAROUSABLE Naloxone HCl (Narcan) 0.1 mg IVP Q15MIN PRN PRN Reason: URINARY RETENTION Ondansetron HCl (Zofran) 4 mg IVP Q6H PRN PRN Reason: Nausea/Vomiting Last Admin: 04/22/18 05:45 Dose: 4 mg Promethazine HCl (Phenergan) 12.5 mg IM Q4H PRN PRN Reason: Nausea Promethazine HCl (Phenergan Suppository) 25 mg [place] Q4H PRN PRN Reason: Nausea/Vomiting Senna/Docusate Sodium (Senokot S) 2 tab PO BID [facility] Last Admin: 04/23/18 08:29 Dose: 2 tab Sodium Chloride (Flush - Normal Saline) 10 ml IVF PRN PRN PRN Reason: Saline Flush Last Admin: 04/23/18 05:43 Dose: 10 ml Thyroid ([place] Thyroid) 90 mg PO DAILY [facility] Last Admin: 04/23/18 08:28 Dose: 90 mg Tramadol HCl (Ultram) 50 mg PO Q6H PRN PRN Reason: Mild Pain 1-3 Tramadol HCl (Ultram) 100 mg PO Q6H PRN PRN Reason: Moderate Pain 4-6 Zolpidem Tartrate (Ambien) 5 mg PO HSPRN PRN PRN Reason: Insomnia
== END 2018-04-23 15:20 | disposition home or self-care (01) | DRG 470 ==
LOC: SJJU 04-21 05:48
PROVIDERS: ADMIT Orthopaedic Surgery; ATTEND Orthopaedic Surgery
PROC: 0SRB0JA Replacement of Left Hip Joint with Synthetic Substitute, Uncemented, Open Approach (ICD-10-PCS; principal; 2018-04-21)
DX: M16.12 Unilateral primary osteoarthritis, left hip (principal); I10 Essential (primary) hypertension; E78.5 Hyperlipidemia, unspecified; E03.9 Hypothyroidism, unspecified; M43.06 Spondylolysis, lumbar region; L40.9 Psoriasis, unspecified
CPT/HCPCS: 36415; 85027; 93005; 93010; C1776; G8978-GP-CK; G8979-GP-CI; G8988-GO-CI; J1200; J1885; J2001; J2250; J2405; J2704; J3010; J3370; J3490; J7050

== ENCOUNTER 2018-04-16 09:27 | Outpatient (CLI) | payer MEDICARE, OTHER ==
[2018-04-16 10:51] LABS: #Eosinphils 0.1 thou/uL (0.0-0.7); #Lymphocytes 1.2 thou/uL (1.20-3.40); #Monocytes 0.5 thou/uL (0.11-0.59); #Neutrophils 2.7 thou/uL (1.40-6.50); %Basophils 0.3 % (0.0-1.0); %Eosinophils 3.3 % (0.0-10.0); %Lymphocytes 25.6 % (21.0-51.0); %Monocytes 11.2 % (0.0-10.0); %Neutrophils 59.6 % (42.0-75.0); Hemoglobin 14.3 g/dL (12.0-16.0); Mean Corpuscular HGB CONC 33.5 g/dL (32.0-36.0); Mean Corpuscular Hemoglobin 32.3 pg (27.0-31.0); Mean Corpuscular Volume 96.6 fL (78.0-98.0); Mean Platelet Volume 6.6 fL (7.4-10.4); Platelet Count 223 thou/uL (130-400); RBC Distribution Width 12.4 % (11.5-14.5); Red Blood Cell (RBC) Count 4.41 mill/uL (4.20-5.40); White Blood Cell (WBC) Count 4.5 thou/uL (4.8-10.8)
[2018-04-16 10:58] LABS: Bacteria/HPF None Seen HPF (None Seen); Hyaline Casts/LPF NONE SEEN LPF (0-3 Hyaline); RBC/HPF None Seen HPF (0-3); Squamous Epithelial 0-3 HPF (0-3); Transitional Epithelial 0-3 HPF (0-3); WBC/HPF None Seen HPF (0-3)
[2018-04-16 10:59] LABS: Prothrombin Time 13.1 SEC (12.0-14.7)
[2018-04-16 11:09] LABS: Anion Gap 12 mmol/L (10-20); BUN (Urea Nitrogen) 18 mg/dL (9.8-20.1); Calc. Creatinine Clearance 0 mL/min (70-130); Calcium 9.8 mg/dL (7.8-10.44); Carbon Dioxide 22 mmol/L (23-31); Chloride 108 mmol/L (98-107); Estimated GFR-MDRD 61; Glucose 95 mg/dL (83-110); Sodium 138 mmol/L (136-145)
== END 2018-04-16 09:28 | disposition home or self-care (01) ==
LOC: LABBT 09:27
PROVIDERS: ATTEND Orthopaedic Surgery
DX: Z01.812 Encounter for preprocedural laboratory examination (principal); M16.12 Unilateral primary osteoarthritis, left hip
CPT/HCPCS: 36415; 80053; 80061; 81015; 84439; 84443; 84481; 85025; 85610; 86850; 86900; 86901; 87081; 87086

== ENCOUNTER 2022-03-05 11:29 | Outpatient (CLI) | payer MEDICARE, OTHER ==
[2022-03-05 12:47] LABS: #Eosinphils 0.3 10x3/uL (0.0-0.5); #Monocytes 0.6 10x3/uL (0.0-1.1); #Neutrophils 3.2 10x3/uL (1.5-8.4); %Basophils 0.4 % (0.0-2.0); %Eosinophils 5.2 % (0.0-6.0); %Lymphocytes 22.5 % (18.0-47.0); %Monocytes 10.7 % (0.0-10.0); Hemoglobin 13.5 g/dL (12.0-15.5); Mean Corpuscular HGB CONC 34.2 g/dL (32.0-36.0); Mean Corpuscular Hemoglobin 31.3 pg (27.0-33.0); Mean Corpuscular Volume 91.6 fl (81.6-98.3); Mean Platelet Volume 8.8 fl (7.4-10.4); Platelet Count 172 10x3/uL (150-450); RBC Distribution Width 14.7 % (11.5-14.5); Red Blood Cell (RBC) Count 4.31 10x6/uL (3.90-5.03); White Blood Cell (WBC) Count 5.2 10x3/uL (3.5-10.5)
[2022-03-05 13:01] LABS: INR-International Normal Ratio 0.9; Prothrombin Time 10.3 sec (9.5-12.1)
[2022-03-05 13:17] LABS: Anion Gap 15 mmol/L (10-20); BUN (Urea Nitrogen) 11 mg/dL (9.8-20.1); Calc. Creatinine Clearance 0 mL/min (70-130); Calcium 9.3 mg/dL (7.8-10.44); Carbon Dioxide 23 mmol/L (23-31); Chloride 104 mmol/L (98-107); Estimated GFR 76; Glucose 94 mg/dL (83-110); Potassium 3.9 mmol/L (3.5-5.1); Sodium 138 mmol/L (136-145)
== END 2022-03-05 11:30 | disposition home or self-care (01) ==
LOC: LABBT 11:29
PROVIDERS: ATTEND Orthopaedic Surgery
DX: Z01.818 Encounter for other preprocedural examination (principal); M17.11 Unilateral primary osteoarthritis, right knee; Z20.822 Contact with and (suspected) exposure to COVID-19
CPT/HCPCS: 80048; 85025; 85610; 87081; 87811; 93005; 93010

== ENCOUNTER 2022-03-08 06:11 | Observation (INO) | payer MEDICARE, OTHER ==
[2022-03-06 12:07] VITALS: BMI 30.5
[2022-03-08] MEDS ORDERED: Tranexamic Acid 1,000 MG/10 ML VIAL ONE (06:19)
[2022-03-08] MEDS ORDERED: Vancomycin 1 GM/200 ML BAG ONE (06:19)
[2022-03-08] MEDS ORDERED: Sodium Chloride 0.9% 100 ML ONE ×2 (06:19→07:00)
[2022-03-08] MEDS ORDERED: fentaNYL Citrate/PF 100 MCG/2 ML SYRINGE ONE (06:32)
[2022-03-08] MEDS ORDERED: Midazolam HCl 2 mg/2 ml Vial ONE (06:58)
[2022-03-08] MEDS ORDERED: Fentanyl 100 MCG/2 ML VIAL ONE ×2 (06:58→09:33)
[2022-03-08] MEDS ORDERED: diphenhydrAMINE 25 MG CAP PO PRN (06:59)
[2022-03-08] MEDS ORDERED: Acetaminophen 325 MG TAB PO PRN (06:59)
[2022-03-08] MEDS ORDERED: Ondansetron PF 4 MG/2 ML Vial IVP PRN ×2 (06:59→08:00)
[2022-03-08] MEDS ORDERED: Fentanyl 100 MCG/2 ML VIAL SLOW IVP PRN ×2 (06:59)
[2022-03-08] MEDS ORDERED: Lidocaine 1% PF 5 ML VIAL ONE (06:59)
[2022-03-08] MEDS ORDERED: HYDROcodone/Acetaminophen 10/325 mg Tablet PO PRN ×4 (06:59→08:00)
[2022-03-08] MEDS ORDERED: Promethazine HCl 25 MG/ML VIAL IM PRN ×3 (06:59→08:58)
[2022-03-08] MEDS ORDERED: Zolpidem Tartrate 5 MG TAB PO PRN ×3 (06:59→08:00)
[2022-03-08] MEDS ORDERED: CEFAZOLIN 2 GM VIAL ONE (07:00)
[2022-03-08] MEDS ORDERED: Bupivacaine HCl 0.5%/Epinephrine 1:200,000/PF 30 ml Vial ONE (07:36)
[2022-03-08] MEDS ORDERED: PROPOFOL 200 MG/20 ML VIAL ONE (07:36)
[2022-03-08] MEDS ORDERED: ePHEDrine 50 MG/ML VIAL ONE (07:36)
[2022-03-08] MEDS ORDERED: Lidocaine 1% MPF 2 ML VIAL ONE (07:36)
[2022-03-08] MEDS ORDERED: Dexamethasone 20 MG/5 ML VIAL ONE (07:36)
[2022-03-08] MEDS ORDERED: Fentanyl 100 MCG/2 ML VIAL IV PRN (07:49)
[2022-03-08] MEDS ORDERED: traMADol HCl 50 MG TAB PO PRN ×2 (08:00)
[2022-03-08] MEDS ORDERED: Ropivacaine 0.2% 550 ML 550 ML NERVE BLCK SCH (08:00)
[2022-03-08] MEDS ORDERED: Bupivacaine PF 0.5% 30 ML VIAL ONE (08:14)
[2022-03-08] MEDS ORDERED: Promethazine HCl 25 MG/ML VIAL IVPB PRN (08:58)
[2022-03-08] MEDS ORDERED: Ondansetron HCl/PF 4 MG/2 ML Vial IVP PRN (08:58)
[2022-03-08] MEDS: Ketorolac Tromethamine 30 MG/ML VIAL IVP SCH ×2 (10:59→17:28)
[2022-03-08] MEDS ORDERED: CEFAZOLIN 2 GM in Sodium Chloride 0.9% 100 ML IVPB SCH (14:00)
[2022-03-08] MEDS: CEFAZOLIN 2 GM in Sodium Chloride 0.9% 100 ML IVPB SCH (16:11)
[2022-03-08] MEDS: Aspirin 81 mg Enteric Coated Tablet PO SCH ×2 (16:14→20:38)
[2022-03-08] MEDS: Senokot S 8.6-50 MG TAB PO SCH ×2 (16:14→20:38)
[2022-03-08] MEDS: Sodium Chloride 0.9% 1,000 ML IV SCH ×2 (16:14→18:25)
[2022-03-08] MEDS: Multivitamin W/ Minerals 1 TAB PO SCH (16:14)
[2022-03-08] MEDS: Ferrous Gluconate 324 MG TAB PO SCH ×2 (16:14→20:38)
[2022-03-08] MEDS: Cyanocobalamin (Vitamin B-12) 1,000 MCG TAB PO SCH (16:14)
[2022-03-08] MEDS ORDERED: Rosuvastatin 10 MG TAB PO SCH (21:00)
[2022-03-08] MEDS ORDERED: Atenolol 50 MG TAB PO SCH (21:00)
[2022-03-08] MEDS ORDERED: Montelukast Sodium 10 mg Tablet PO SCH (21:00)
[2022-03-09] MEDS: CEFAZOLIN 2 GM in Sodium Chloride 0.9% 100 ML IVPB SCH (00:39)
[2022-03-09] MEDS: Ketorolac Tromethamine 30 MG/ML VIAL IVP SCH ×2 (00:39→05:14)
[2022-03-09] MEDS: Sodium Chloride 0.9% 1,000 ML IV SCH (04:18)
[2022-03-09 06:05] LABS: Hemoglobin 11.3 g/dL (12.0-16.0); Mean Corpuscular HGB CONC 33.4 g/dL (32.0-36.0); Mean Corpuscular Hemoglobin 32.2 pg (27.0-31.0); Mean Corpuscular Volume 96.5 fL (78.0-98.0); Mean Platelet Volume 6.4 fL (7.4-10.4); Platelet Count 169 thou/uL (130-400); RBC Distribution Width 13.5 % (11.5-14.5); Red Blood Cell (RBC) Count 3.52 mill/uL (4.20-5.40)
[2022-03-09] MEDS: Aspirin 81 mg Enteric Coated Tablet PO SCH (08:22)
[2022-03-09] MEDS: Cyanocobalamin (Vitamin B-12) 1,000 MCG TAB PO SCH (08:22)
[2022-03-09] MEDS: Multivitamin W/ Minerals 1 TAB PO SCH (08:23)
[2022-03-09] MEDS: Senokot S 8.6-50 MG TAB PO SCH (08:23)
[2022-03-09] MEDS: Ferrous Gluconate 324 MG TAB PO SCH (08:23)
[2022-03-09 08:28] VITALS: BP 127/66; TEMP 98.1
== END 2022-03-09 10:20 | disposition home health service (06) ==
LOC: SDC 06:11 → SURG B 06:59
PROVIDERS: ADMIT Orthopaedic Surgery; ATTEND Orthopaedic Surgery
PROC: 0SRC0J9 Replacement of Right Knee Joint with Synthetic Substitute, Cemented, Open Approach (ICD-10-PCS; principal; 2022-03-08)
PROC: 8E0YXBZ Computer Assisted Procedure of Lower Extremity (ICD-10-PCS; 2022-03-08)
PROC: 3E0T3BZ Introduction of Anesthetic Agent into Peripheral Nerves and Plexi, Percutaneous Approach (ICD-10-PCS; 2022-03-08)
DX: M17.11 Unilateral primary osteoarthritis, right knee (principal); M19.011 Primary osteoarthritis, right shoulder; M75.101 Unspecified rotator cuff tear or rupture of right shoulder, not specified as traumatic; I10 Essential (primary) hypertension; E78.5 Hyperlipidemia, unspecified; E03.9 Hypothyroidism, unspecified; M06.9 Rheumatoid arthritis, unspecified; M81.0 Age-related osteoporosis without current pathological fracture; L40.50 Arthropathic psoriasis, unspecified; G47.33 Obstructive sleep apnea (adult) (pediatric); K21.9 Gastro-esophageal reflux disease without esophagitis; Z79.82 Long term (current) use of aspirin; Z79.890 Hormone replacement therapy; Z79.899 Other long term (current) drug therapy; Z88.8 Allergy status to other drugs, medicaments and biological substances; Z96.642 Presence of left artificial hip joint
CPT/HCPCS: 20985; 27447; 64448; 73560; 85027; 97110; 97116 ×2; 97530 ×2; A4306; C1713; C1776; 36415; J0690; J1100; J1885; J2250; J2704; J2795; J3010; J3370; J3490; S0020

== ENCOUNTER 2024-05-05 10:10 | Outpatient (CLI) | payer MEDICARE, OTHER | END 2024-05-05 10:11 | disposition home or self-care (01) | LOC: SCSRAD 10:10 | PROVIDERS: ATTEND Internal Medicine Rheumatology | DX: M65.811 Other synovitis and tenosynovitis, right shoulder (principal); M65.812 Other synovitis and tenosynovitis, left shoulder; M19.012 Primary osteoarthritis, left shoulder; M19.011 Primary osteoarthritis, right shoulder ==

== ENCOUNTER 2024-07-16 10:09 | Observation (INO) | payer MEDICARE, OTHER ==
[2024-07-16 11:23] LABS: #Basophils Less than 0.03 10x3/uL (0.0-0.2); %Basophils 0.4 % (0.0-1.0); %Lymphocytes 27.1 % (21.0-51.0); %Neutrophils 54.3 % (42.0-75.0); Hematocrit 39.9 % (36.0-47.0); Hemoglobin 13.4 g/dL (12.0-16.0); Mean Corpuscular HGB CONC 33.6 g/dL (32.0-36.0); Mean Corpuscular Hemoglobin 31.8 pg (27.0-31.0); Mean Corpuscular Volume 94.5 fL (78.0-98.0); Mean Platelet Volume 8.8 fL (7.4-10.4); Platelet Count 187 10x3/uL (130-400); RBC Distribution Width 14.2 % (11.5-14.5); Red Blood Cell (RBC) Count 4.22 mill/uL (4.20-5.40)
[2024-07-16 11:38] LABS: Calc. Creatinine Clearance 0 mL/min (70-130); Estimated GFR 68
[2024-07-16 11:39] LABS: ALT (SGPT) 15 U/L (8-55); AST (SGOT) 21 U/L (5-34); Albumin 3.6 g/dL (3.4-4.8); Alkaline Phosphatase 47 U/L (40-110); Anion Gap 11 mmol/L (10-20); BUN (Urea Nitrogen) 15 mg/dL (9.8-20.1); Bilirubin, Total 0.7 mg/dL (0.2-1.2); Calcium 9.2 mg/dL (7.8-10.44); Carbon Dioxide 26 mmol/L (23-31); Chloride 105 mmol/L (98-107); Globulin 3.8 g/dL (2.4-3.5); Glucose 94 mg/dL (83-110); Potassium 4.1 mmol/L (3.5-5.1); Protein, Total 7.4 g/dL (5.8-8.1); Sodium 138 mmol/L (136-145)
[2024-07-16] MEDS ORDERED: Aspirin Chewable 81 MG TAB ONE (11:53)
[2024-07-16 13:47] LABS: Bacteria/HPF None Seen HPF (None Seen); Bilirubin Negative (Negative); Blood, Urine Negative (Negative); CAUTI Indications for Culture Alt mental st,lethar; Clarity Clear (Clear); Glucose, Urine (Dipstick) Normal (Negative); Ketone, Urine Negative (Negative); Leukocyte 25 Leu/uL (Negative); Nitrite Negative (Negative); Protein, Urine (Dipstick) Negative (Neg-Trace); RBC/HPF None Seen HPF (0-3); Specific Gravity, Urine 1.008 (1.002-1.036); Squamous Epithelial 0-3 HPF (0-3); Urobilinogen Normal mg/dL (Less than 2); WBC/HPF 0-3 HPF (0-3); pH, Urine 6.5 (5.0-9.0)
[2024-07-16 13:54] LABS: Urine Culture Reflex No No
[2024-07-16] MEDS ORDERED: Acetaminophen 325 MG TAB PO PRN (15:04)
[2024-07-16 17:02] VITALS: BMI 30.8
[2024-07-16] MEDS: Montelukast Sodium 10 mg Tablet PO SCH (20:58)
[2024-07-16] MEDS: Bisacodyl 5 MG TAB PO PRN (20:58)
[2024-07-16] MEDS: Zolpidem Tartrate 5 MG TAB PO PRN (20:58)
[2024-07-16] MEDS: Rosuvastatin 10 MG TAB PO SCH (20:58)
[2024-07-16] MEDS: Rosuvastatin 20 MG TAB PO SCH (21:01)
[2024-07-16] MEDS: Calcium Carbonate 500 MG ChewTAB PO PRN (21:26)
[2024-07-17 05:30] LABS: #Basophils Less than 0.03 10x3/uL (0.0-0.2); %Basophils 0.3 % (0.0-1.0); %Eosinophils 2.2 % (0.0-10.0); %Lymphocytes 26.8 % (21.0-51.0); %Monocytes 13.2 % (0.0-10.0); %Neutrophils 57.3 % (42.0-75.0); Hematocrit 42.7 % (36.0-47.0); Hemoglobin 14.1 g/dL (12.0-16.0); Mean Corpuscular Hemoglobin 31.8 pg (27.0-31.0); Mean Corpuscular Volume 96.2 fL (78.0-98.0); Mean Platelet Volume 8.6 fL (7.4-10.4); Platelet Count 221 10x3/uL (130-400); RBC Distribution Width 14.3 % (11.5-14.5); Red Blood Cell (RBC) Count 4.44 mill/uL (4.20-5.40)
[2024-07-17 05:49] LABS: Anion Gap 11 mmol/L (10-20); BUN (Urea Nitrogen) 13 mg/dL (9.8-20.1); Calc. Creatinine Clearance 66 mL/min (70-130); Calcium 9.9 mg/dL (7.8-10.44); Carbon Dioxide 27 mmol/L (23-31); Chloride 104 mmol/L (98-107); Cholesterol 163 mg/dl (< 200 Desired); Estimated GFR 69; Glucose 102 mg/dL (83-110); HDL Cholesterol 41 mg/dL (>60 Neg Risk); LDL Cholesterol, Calculated 71 mg/dL; Potassium 3.6 mmol/L (3.5-5.1); Sodium 138 mmol/L (136-145); Triglycerides 253 mg/dL (Less than 150)
[2024-07-17] MEDS: Aspirin 325 mg Enteric Coated Tablet PO SCH (08:23)
[2024-07-17 16:22] VITALS: BP 127/83; TEMP 97.4
[2024-07-18] MEDS ORDERED: FLU (Fluad Triv) TS24-25 (65UP)/MF59C/PF 45 MCG/0.5 ML Syringe IM ONE (09:00)
== END 2024-07-17 16:00 | disposition home or self-care (01) ==
LOC: ERS 10:09 → ERHOLD 14:30 → 2SE 19:31
PROVIDERS: ADMIT Internal Medicine; ATTEND Student in an Organized Health Care Education/Training Program
DX: R29.818 Other symptoms and signs involving the nervous system (principal); I10 Essential (primary) hypertension; E78.5 Hyperlipidemia, unspecified; E03.9 Hypothyroidism, unspecified; G47.00 Insomnia, unspecified; J34.89 Other specified disorders of nose and nasal sinuses; Z85.41 Personal history of malignant neoplasm of cervix uteri; Z96.642 Presence of left artificial hip joint; Z96.651 Presence of right artificial knee joint; Z90.710 Acquired absence of both cervix and uterus; Z90.49 Acquired absence of other specified parts of digestive tract; Z91.148 Patient's other noncompliance with medication regimen for other reason; Z79.1 Long term (current) use of non-steroidal anti-inflammatories (NSAID); Z79.82 Long term (current) use of aspirin; Z79.899 Other long term (current) drug therapy
CPT/HCPCS: 70450; 70551; 80048; 80061; 81001; 82607; 85025; 93005; 93880; 97535; 99285; G0378 ×3; 36415; 80053; 84443